=== PATIENT | female | born 2000 ===

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

== ENCOUNTER 2019-04-05 01:30 | Emergency (ER) | payer OTHER ==
--- NOTE | 2019-04-05 01:26 | ED ---
Upper Extremity Pain - HPI Summary HPI Summary: 19 year old female presents with right wrist injury today. She states that she fell on her wrist today. She denies any numbness or tingling. No previous fracture area. She has no medical conditions. has not taken anything for her pain. no head injury. no loc. denies any elbow or shoulder pain. is a student. is right handed. did have some ETOH. no other injury. - History of Current Complaint Chief Complaint: EDExtremityUpper Stated Complaint: R WRIST INJURY PER PT Time Seen by Provider: 04/05/19 01:22 EST Hx Last Menstrual Period: 01/20/17 - Allergies/Home Medications Allergies/Adverse Reactions: Allergies Allergy/AdvReac Type Severity Reaction Status Date / Time No Known Allergies Allergy Verified 04/05/19 01:32 EDT PMH/Surg Hx/FS Hx/Imm Hx Endocrine/Hematology History: Denies: Hx Anticoagulant Therapy Respiratory History: Denies: Hx Asthma Infectious Disease History: No Infectious Disease History: Denies: Traveled Outside the [place] in Last 30 Days - Family History Known Family History: Positive: Other - DENIES: colitis or IBS. Parents living and healthy - Social History Alcohol Use: Occasionally Substance Use Type: Reports: None Smoking Status (MU): Never Smoked Tobacco Review of Systems Negative: Fever Negative: Chest Pain Negative: Shortness Of Breath Positive: Myalgia - right wrist pain All Other Systems Reviewed And Are Negative: Yes Physical Exam Triage Information Reviewed: Yes Vital Signs On Initial Exam: Initial Vitals Temp Pulse Resp BP Pulse Ox 96.0 F 90 18 161/81 96 04/05/19 01:32 EDT 04/05/19 01:32 EDT 04/05/19 01:32 EDT 04/05/19 01:32 EDT 04/05/19 01:32 EDT Vital Signs Reviewed: Yes Appearance: Positive: Well-Appearing Skin: Positive: Warm, Dry Head/Face: Positive: Normal Head/Face Inspection Eyes: Positive: Normal, Conjunctiva Clear ENT: Positive: Pharynx normal Respiratory/Lung Sounds: Positive: Clear to Auscultation, Breath Sounds Present Cardiovascular: Positive: Normal, RRR Musculoskeletal: Positive: Other - tenderness right wrist, good pulses, sensation grossly intact, no snuff box tenderness, but pain with ROM thumb Neurological: Positive: Normal Psychiatric: Positive: Normal Procedures - Sedation Patient Received Moderate/Deep Sedation with Procedure: No Diagnostics - Vital Signs Vital Signs Temp Pulse Resp BP Pulse Ox 04/05/19 01:32 EDT 96.0 F 90 18 161/81 96 - Laboratory Lab Statement: Any lab studies that have been ordered have been reviewed, and results considered in the medical decision making process. - Radiology wrist, forearm Radiology Interpretation Completed By: ED Physician Summary of Radiographic Findings: no fracture Course/Dx - Course Course Of Treatment: 19 year old female presents with right wrist injury today. She states that she fell on her wrist today. She denies any numbness or tingling. No previous fracture area. She has no medical conditions. has not taken anything for her pain. no head injury. no loc. states she fell onto outstretched hand. denies any elbow or shoulder pain. is a student. is right handed. did have some ETOH. on exam has tenderness right wrist. nontender snuff box but does have pain into wrist with thumb movement. neurovascular intact. xray shows no fracture. gave thumb splint. told to follow up with ortho. patient understand and agrees with plan. - Diagnoses Differential Diagnosis/HQI/PQRI: Positive: Fracture (Closed) Provider Diagnoses: Right wrist injury Discharge ED - Sign-Out/Discharge Documenting (check all that apply): Patient Departure - Discharge Plan Condition: Good Disposition: HOME Patient Education Materials: R.I.C.E. Treatment (ED) Referrals: Cristhian Tovar MD [Medical Doctor] - Additional Instructions: keep splint on area Ice, elevate Take tyenlol or ibuprofen every 6 hours as needed for pain follow up with ortho Return to ED if develop any new or worsening symptoms - Billing Disposition and Condition Condition: GOOD Disposition: Home - Attestation Statements Provider Attestation: I was available for consult. This patient was seen by the BRYAN. The patient was not presented to, seen by, or examined by me. Karan Marrero MD
[~2019-04-05 01:30] MED LIST: Ketorolac INJ* 30 MG/ML 1 ML VIAL IM ONE
[2019-04-05 01:36] VITALS: BP 161/81
== END 2019-04-05 02:07 | disposition home or self-care (01) ==
LOC: ED 01:30
DX: S69.91XA Unspecified injury of right wrist, hand and finger(s), initial encounter (principal); W19.XXXA Unspecified fall, initial encounter; Y92.9 Unspecified place or not applicable
CPT/HCPCS: 96372; 99282; J1885